=== PATIENT | male | born 1935 | race Caucasian/White ===

== ENCOUNTER 2017-01-25 10:39 | Emergency (ER) | payer MEDICARE, OTHER ==
--- NOTE | 2017-01-25 10:45 | EDM.PDOC ---
ED HISTORY OF PRESENT ILLNESS - General Chief Complaint: Respiratory Problem Stated Complaint: Respirtatory Problem Time Seen by Provider: 01/25/17 10:40 Source of Information: Reports: Patient, [facility] records (Limited), Old records ([facility] EMR. No paper hospital chart available.) History Limitations: Reports: No limitations - History of Present Illness INITIAL COMMENTS - FREE TEXT/NARRATIVE: The patient was transferred to the emergency room via transport vehicle from [facility] in [place] for evaluation of nonspecific progressive dyspnea with symptoms starting at about 22:00 hours yesterday evening. He has had recent extensive pulmonology consultation and evaluation, including bronchoscopy, CT scan of the chest, etc, as below with known history of COPD. The patient denies any chest pain/pressure, heart flutter, dizziness, orthostasis, orthopnea, diaphoresis, paresthesias, recent decreased exercise tolerance, or any other anginal-type symptoms. No recent history of abdominal pain, heartburn, nausea, diarrhea, melena, gross hematochezia, or any food intolerance, including fatty foods, etc.. No recent history of abdominal pain, heartburn, nausea, diarrhea, melena, gross hematochezia, or any food intolerance , including fatty foods, etc. with normal bowel movement yesterday evening. The patient also denies any recent fever, cough, wheezing, etc.. Home Accu-Cheks have been stable, including an Accu-Chek of 152 mg percent this morning by his history Symptom Onset Date: 01/24/17 Symptom Onset Time: 22:00 Timing/Duration: Reports: Constant, Getting worse Severity: moderate Location, General: Reports: other (No pain) Quality: Reports: Same as previous episode Improves with: Reports: Rest Worsens with: Reports: Movement (And activity) Context, General: Reports: Other (As above) Associated Symptoms (General): Reports: shortness of breath. Denies: confusion , chest pain, cough, diaphoresis, fever/chills, headaches, loss of appetite, malaise, nausea/vomiting, syncope, weakness Treatments CARE TRANSPORT NURSE: Reports: Oxygen (4 L per minute by Venturi mask) - Related Data Allergies/ADRs: Allergies Allergy/AdvReac Type Severity Reaction Status Date / Time No Known Allergies Allergy Verified 06/25/14 22:02 Home Meds: Home Meds Ascorbate Calcium [Vitamin C] 500 mg PO DAILY 06/25/14 [History] Aspirin [Ecotrin] 325 mg PO DAILY 06/25/14 [History] Atenolol [Tenormin] 25 mg PO DAILY 06/25/14 [History] Calcium/Magnesium/Zinc [Rfqjmuw-Ubatyiank-Xfja Tablet] 3 tab PO DAILY 06/25/14 [ History] Dorzolamide/Timolol [Cosopt 2%-0.5% Ophth Soln] 1 drop EYEBOTH BID 06/25/14 [ History] Garlic [Odorless Garlic] 1,250 mg PO DAILY 06/25/14 [History] Zwwvotug-Pcihame-Zjsa 149-Hyal [Glucosamine Chondroitin Complx] 3 cap PO DAILY 06/25/14 [History] Insulin Glarg,Human.Rec.Analog [Lantus] 60 unit SUBCUT BEDTIME 06/25/14 [History ] Latanoprost [Xalatan 0.005% Ophth Soln] 1 drop EYEBOTH DAILY 06/25/14 [History] Lisinopril [Zestril] 40 mg PO DAILY 06/25/14 [History] Multivit-Min/FA/Lycopene/Lut [Centrum Silver] 1 tab PO DAILY 06/25/14 [History] Naproxen Sodium [Aleve] 2 tab PO DAILY 06/25/14 [History] atorvaSTATin Calcium [Atorvastatin Calcium] 10 mg PO BEDTIME 06/25/14 [History] Loratadine [Claritin] 10 mg PO BEDTIME #30 tab 06/27/14 [Rx] Acetaminophen 650 mg PO Q4HR PRN 01/25/17 [History] Albuterol/Ipratropium [DuoNeb 3.0-0.5 MG/3 ML] 3 ml IN BID 01/25/17 [History] Albuterol/Ipratropium [DuoNeb 3.0-0.5 MG/3 ML] 3 ml INH Q4HR PRN 01/25/17 [ History] Insulin Aspart [NovoLOG] 4 unit SUBCUT DAILY@1700 01/25/17 [History] Insulin Aspart [NovoLOG] 14 unit SUBCUT DAILY@1200 01/25/17 [History] Naproxen Sodium [Aleve] 220 mg PO DAILY PRN 01/25/17 [History] Past Medical History HEENT History: Reports: Allergic rhinitis, Cataract, Glaucoma, Hard of hearing, Impaired vision, Other (see below). Denies: Macular degeneration Other HEENT History: Patient wears glasses, chronic bilateral presbycusis with patient noncompliant with hearing aid therapy, known previous otosclerosis, diabetic retinopathy with macular edema Cardiovascular History: Reports: CAD, High cholesterol, Hypertension, Other ( see below). Denies: Arrhythmia, VT Other Cardiovascular History: Inferolateral coronary artery disease by EKG Respiratory History: Reports: Bronchitis, recurrent, COPD, Pneumonia, recurrent , Pulmonary fibrosis, Other (see below) Other Respiratory History: History of recurrent right lower lobe bronchus obstruction secondary to inflammatory changes and/or mucous plugging, multiple benign bilateral pulmonary nodules including right upper lobe cystic lesion which is closely followed by pulmonology and serial CT scans as below Gastrointestinal History: Reports: Other (see below) Other Gastrointestinal History: Nonincarcerated umbilical hernia Genitourinary History: Reports: BPH, Chronic renal insuffiency, Diabetic nephropathy Musculoskeletal History: Reports: Arthritis, Back pain, chronic, Neck pain, chronic, Osteoarthritis Neurological History: Reports: Neuropathy, diabetic, Neuropathy, peripheral Endocrine/Metabolic History: Reports: Diabetes, type II, IDDM - Past Surgical History HEENT Surgical History: Reports: Cataract surgery, Oral surgery Respiratory Surgical History: Reports: Lung Biopsies, Other (see below) Other Respiratory Surgeries/Procedures: Apparent negative bronchoscopy including biopsies on 01/16/17 - Past Imaging History Past Imaging History: Reports: CAT scan (Last CT of the chest on 01/16/17 with previous evaluations on 09/08/16, 04/13/15, and 03/19/15), PFT (Last PFTs on 01/16/17 ) Social & Family History - Tobacco Use Smoking Status *Q: Former Smoker Tobacco Use Within Last Twelve Months: Cigarettes Years of Tobacco use: 37 Packs/Tins Daily: 1 (Smoked between the ages 13 and 50) Used Tobacco, but Quit: Yes Month Tobacco Last Used: As above Smoking Cessation Information Provided To Patient: No Second Hand Smoke Exposure: No Second Hand Smoke Education Provided: No - Alcohol Use Alcohol Use History: No Days Per Week of Alcohol Use: 0 - Recreational Drug Use Recreational Drug Use: No - Living Situation & Occupation Living situation: Reports: extended care facility (Basic side at [facility] in [place]) ED ROS GENERAL - Review of Systems Review Of Systems: See Below Constitutional: Reports: no symptoms. Denies: fever, chills, malaise, weakness , fatigue, night sweats, diaphoresis, decreased appetite, weight loss, weight gain HEENT: Reports: Glasses, Hearing loss (Noncompliant with hearing aides). Denies : Dental pain, Ear discharge, Ear pain, Rhinitis, Sinus problem, Throat pain, Throat swelling, Vertigo, Vision change Respiratory: Reports: Shortness of Breath, Cough. Denies: Wheezing, Pleuritic Chest Pain, Sputum, Hemoptysis Cardiovascular: Reports: Dyspnea on exertion. Denies: Chest pain, Blood pressure problem, Claudication, Edema, Lightheadedness, Orthopnea, Palpitations , PND, Syncope Endocrine: Reports: no symptoms. Denies: fatigue, high glucose, low glucose, polydypsia, polyuria GI/Abdominal: Reports: No symptoms. Denies: Abdominal pain, Anorexia, Black stool, Bloody stool, Constipation, Diarrhea, Decreased appetite, Difficulty swallowing, Distension, Flatus, Hematemesis, Hematochezia, Melena, Nausea, Stool incontinence, Vomiting : Reports: no symptoms. Denies: dysuria, flank pain, frequency, hematuria, incontinence, pain, urgency, urinary retention Musculoskeletal: Reports: no symptoms. Denies: neck pain, shoulder pain, arm pain, leg pain Skin: Reports: no symptoms. Denies: diaphoresis, bruising, wound Neurological: Reports: Difficulty Walking (Stable uses walker). Denies: Confusion, Dizziness, Headache, Numbness, Paresthesia, Pre-Existing Deficit, Seizure, Syncope, Tingling, Weakness Psychiatric: Reports: No symptoms. Denies: Agitation, Anxiety, Confusion, Depression, Hallucinations Hematologic/Lymphatic: Reports: no symptoms. Denies: anemia Immunologic: Reports: no symptoms ED EXAM, GENERAL - Physical Exam Exam: See Below Exam Limited By: No limitations General Appearance: alert, WD/WN, no apparent distress Eye Exam: bilateral eye: EOMI, normal inspection (No nystagmus), PERRL Ears: normal external exam, normal canal, normal TMs, hearing loss (Stable by history moderate bilateral presbycusis with no hearing aides) Nose: normal inspection, normal mucosa, no blood Throat/Mouth: Normal inspection, Normal lips, Normal gums, Normal oropharynx, Normal voice, No airway compromise. No: Normal teeth (Complete absent dentition with no dentures present), Dysphagia, Perioral cyanosis Head: atraumatic, normocephalic. No: facial swelling, facial tenderness, sinus tenderness Neck: normal inspection, supple, non-tender, full range of motion, carotid bruit (Mild bilateral carotid bruits). No: lymphadenopathy (L), lymphadenopathy (R), thyromegaly Respiratory/Chest: no respiratory distress, no accessory muscle use, chest non- tender, decreased breath sounds (Right base), rales (Bilateral basilar rales). No: respiratory distress, rhonchi, pleural rub, retractions Cardiovascular: normal peripheral pulses, regular rate, rhythm, no edema, no gallop, no JVD, no murmur, no rub, other (Quiet heart sounds). No: gallop/S3, gallop/S4, friction rub Peripheral Pulses: 2+: radial (L), radial (R), dorsalis pedis (L), dorsalis pedis (R) GI/Abdominal: normal bowel sounds, soft, non tender, no organomegaly, no distention, no abnormal bruit, no mass, hernia (4 centimeter in diameter nonincarcerated umbilical hernia). No: guarding (Male) Exam: Deferred Rectal (Males) Exam: Deferred Back Exam: normal inspection, full range of motion. No: CVA tenderness (L), CVA tenderness (R), muscle spasm Extremities: normal inspection, normal range of motion, non-tender, no pedal edema, normal capillary refill. No: Leny's Sign Neurological: alert, oriented, CN II-XII intact, normal cognition, normal reflexes (Negative Babinski's), no motor/sensory deficits. No: confused Psychiatric: normal affect, normal mood Skin Exam: Warm, Dry, Intact, Normal color, No rash. No: Diaphoretic, Wound/ incision Lymphatic: no adenopathy EKG INTERPRETATION EKG Date: 01/25/17 Time: 11:00 Rhythm: NSR Rate (beats/min): 69 [place]: normal (Left cardiac axis) P-wave: present (Mild Diffuse biphasic P waves with some pulmonary hypertension by EKG with resolution of previous poor R-wave progression in the anterior leads ) QRS: normal (QRS interval 0.08 seconds representing repolarization changes) ST-T: normal (Resolution of previous T-wave inversion in leads 2, 3, aVF, and V4 through V6) QT: normal OR/PQ Interval: 0.18 seconds Comparison: change from previous EKG (As above since last EKG on 06/25/14) EKG Interpretation Comments: 1. No acute ischemic changes 2. History of probable inferolateral cardiac ischemia Course - Vital Signs Last Recorded V/S: Last Vital Signs Temp 37.2 C 01/25/17 10:40 Pulse 69 01/25/17 12:20 Resp 25 H 01/25/17 12:20 BP 82/52 L 01/25/17 12:20 Pulse Ox 94 L 01/25/17 12:20 Vital Signs - 24 hr 01/25/17 01/25/17 01/25/17 10:40 11:00 11:08 Temperature [ 37.2 C Oral] Pulse, 75 70 69 Peripheral [ Pulse Oximetry] Respiratory 20 20 19 Rate Blood Pressure 122/58 L 88/54 L 91/51 L [Right Upper Arm] O2 Sat by Pulse 95 95 94 L Oximetry 01/25/17 01/25/17 01/25/17 11:40 12:00 12:20 Temperature [ Oral] Pulse, 66 70 69 Peripheral [ Pulse Oximetry] Respiratory 26 H 23 H 25 H Rate Blood Pressure 88/54 L 82/52 L [Right Upper Arm] O2 Sat by Pulse 94 L 93 L 94 L Oximetry Note blood pressures taken by auscultation/manually - Orders/Labs/Meds Orders: Active Orders 24 hr Category Date Time Status Cardiac Monitoring [RC] . DIRECTED Care 01/25/17 10:50 Active EKG Documentation Completion [RC] ASDIRECTED Care 01/25/17 10:50 Active Oxygen Therapy, ED [RC] CONTINUOUS Care 01/25/17 10:50 Active Peripheral IV Care [RC] . DIRECTED Care 01/25/17 10:50 Active Pulse Oximetry [RC] CONTINUOUS Care 01/25/17 10:50 Active Up With Assistance [RC] PFP Care 01/25/17 10:50 Active Vital Signs [RC] PFP Care 01/25/17 10:50 Active Nothing per Oral Now Diet [DIET] Diet 01/25/17 Breakfast Active Chest 1V Frontal [CR] Stat Exams 01/25/17 10:50 Taken Sodium Chloride 0.9% [Saline Flush] Med 01/25/17 10:49 Active 10 ml FLUSH ASDIRECTED PRN Obtain Past Medical Record [OM.PC] Urgent Oth 01/25/17 10:50 Active Peripheral IV Insertion Adult [OM.PC] Stat Oth 01/25/17 10:50 Ordered Resuscitation Status Stat Resus Stat 01/25/17 10:49 Ordered Medication Orders Sodium Chloride (Saline Flush) 10 ml FLUSH ASDIRECTED PRN PRN Reason: Keep Vein Open Last Admin: 01/25/17 11:02 Dose: 10 ml Labs: Laboratory Tests 01/25/17 01/25/17 01/25/17 Range/Units 10:50 10:50 10:50 WBC 10.1 (4.0-10.2) K/uL RBC 4.68 (4.33-5.41) M/uL Hgb 14.8 (13.1-16.8) g/dL Hct 43.5 (39.0-49.0) % MCV 92.9 (84.0-98.0) fL MCH 31.6 (28.2-33.3) pg MCHC 34.0 (31.7-36.0) g/dL RDW 14.1 (11.2-14.1) % Plt Count 162 (150-350) K/uL Neut % (Auto) 91.0 H (45.0-80.0) % Lymph % (Auto) 5.1 L (10.0-50.0) % Jackson % (Auto) 3.6 (2.0-14.0) % Eos % (Auto) 0.2 (0.0-5.0) % Baso % (Auto) 0.1 (0.0-2.0) % Neut # (Auto) 9.21 H (1.40-7.00) K/uL Lymph # (Auto) 0.52 (0.50-3.50) K/uL Jackson # (Auto) 0.36 (0.00-1.00) K/uL Eos # (Auto) 0.02 (0.00-0.50) K/uL Baso # (Auto) 0.01 (0.00-0.20) K/uL PT 11.7 (9.8-11.7) SEC INR 1.1 APTT 31.5 H (23.5-30.0) SEC D-Dimer, Quantitative 1900 H (0-400) ng/mL Sodium (136-145) mmol/L Potassium (3.5-5.1) mmol/L Chloride (98-107) mmol/L Carbon Dioxide (21.0-32.0) mmol/L BUN (7-18) mg/dL Creatinine (0.51-1.17) mg/dL Est Cr Clr Drug Dosing Estimated GFR (MDRD) mL/min Glucose (74-106) mg/dL Lactic Acid (0.4-2.0) mmol/L Uric Acid (2.6-7.2) mg/dL Calcium (8.5-10.1) mg/dL Magnesium (1.8-2.4) mg/dL Total Bilirubin (0.2-1.0) mg/dL AST (15-37) U/L ALT (12-78) U/L Alkaline Phosphatase (46-116) IU/L Creatine Kinase (26-308) U/L Creatine Kinase Index (0.0-2.5) % CK-MB (CK-2) (0.00-3.60) ng/mL Troponin I (0.000-0.056) ng/mL Uxj-X-Xojqueewaqd Pept (0-125) pg/mL Total Protein (6.4-8.2) g/dL Albumin (3.4-5.0) g/dL TSH, Ultra Sensitive (0.358-3.740) mIU/mL H. pylori IgG Antibody (NEGATIVE) 01/25/17 01/25/17 01/25/17 Range/Units 10:50 10:50 10:50 WBC (4.0-10.2) K/uL RBC (4.33-5.41) M/uL Hgb (13.1-16.8) g/dL Hct (39.0-49.0) % MCV (84.0-98.0) fL MCH (28.2-33.3) pg MCHC (31.7-36.0) g/dL RDW (11.2-14.1) % Plt Count (150-350) K/uL Neut % (Auto) (45.0-80.0) % Lymph % (Auto) (10.0-50.0) % Jackson % (Auto) (2.0-14.0) % Eos % (Auto) (0.0-5.0) % Baso % (Auto) (0.0-2.0) % Neut # (Auto) (1.40-7.00) K/uL Lymph # (Auto) (0.50-3.50) K/uL Jackson # (Auto) (0.00-1.00) K/uL Eos # (Auto) (0.00-0.50) K/uL Baso # (Auto) (0.00-0.20) K/uL PT (9.8-11.7) SEC INR APTT (23.5-30.0) SEC D-Dimer, Quantitative (0-400) ng/mL Sodium 138 (136-145) mmol/L Potassium 4.5 (3.5-5.1) mmol/L Chloride 103 (98-107) mmol/L Carbon Dioxide 21.6 (21.0-32.0) mmol/L BUN 45 H (7-18) mg/dL Creatinine 1.67 H (0.51-1.17) mg/dL Est Cr Clr Drug Dosing TNP Estimated GFR (MDRD) 39 mL/min Glucose 174 H (74-106) mg/dL Lactic Acid 2.5 H (0.4-2.0) mmol/L Uric Acid 6.9 (2.6-7.2) mg/dL Calcium 8.4 L (8.5-10.1) mg/dL Magnesium 2.0 (1.8-2.4) mg/dL Total Bilirubin 1.1 H (0.2-1.0) mg/dL AST 25 (15-37) U/L ALT 34 (12-78) U/L Alkaline Phosphatase 76 (46-116) IU/L Creatine Kinase 413 H (26-308) U/L Creatine Kinase Index 0.6 (0.0-2.5) % CK-MB (CK-2) 2.50 (0.00-3.60) ng/mL Troponin I 0.239 H* (0.000-0.056) ng/mL Udq-T-Mmtbdvndfsx Pept 8110 H (0-125) pg/mL Total Protein 6.8 (6.4-8.2) g/dL Albumin 2.9 L (3.4-5.0) g/dL TSH, Ultra Sensitive 0.383 (0.358-3.740) mIU/mL H. pylori IgG Antibody Negative (NEGATIVE) Meds: Medications Generic Name Dose Route Start Last Admin Trade Name Freq PRN Reason Stop Dose Admin Sodium Chloride 10 ml 01/25/17 10:49 01/25/17 11:02 Saline Flush FLUSH 10 ml ASDIRECTED PRN Administration Keep Vein Open Discontinued Medications Generic Name Dose Route Start Last Admin Trade Name Freq PRN Reason Stop Dose Admin Aspirin 324 mg 01/25/17 11:48 01/25/17 11:55 Aspirin CHEW 01/25/17 11:49 324 mg ONETIME ONE Administration Clopidogrel Bisulfate 300 mg 01/25/17 11:48 01/25/17 11:56 Plavix PO 01/25/17 11:49 300 mg ONETIME ONE Administration Famotidine 40 mg 01/25/17 10:49 01/25/17 10:59 Pepcid IVPUSH 01/25/17 10:50 40 mg ONETIME ONE Administration - Radiology Interpretation Free Text/Narrative:: Info Specialist showed normal sinus rhythm averaging in the 70s with no ectopy or arrhythmia Chest x-ray, portable, showed evidence of moderate to severe COPD and pulmonary fibrotic changes with evidence of severe right lower lobe atelectasis consistent with previous chronic right bronchial obstruction in the past as above. Concomitant pulmonary infiltrates may also be present however difficult to assess. Moderate cardiomegaly and prominence of the proximal aortic arch with probable moderate centralized CHF and concomitant pulmonary hypertension. No evidence of pneumothorax Departure - Departure Time of Disposition: 12:25 Disposition: DC/Tfer to Acute Hospital 02 Condition: serious Clinical Impression: Hyperlipidemia, CHF (congestive heart failure), Hypotension, Hypertension, COPD (chronic obstructive pulmonary disease), D-dimer, elevated, Renal insufficiency, IDDM (insulin dependent diabetes mellitus) Referrals: Sheets-Kyung Prather MD [Primary Care Provider] - Forms: ED Department Discharge, Interfacility Transfer EMTALA - Problem List & Annotations (1) CHF (congestive heart failure) SNOMED Code(s): 05214318 Code(s): I50.9 - HEART FAILURE, UNSPECIFIED Status: Acute Priority: High Current Visit: Yes Onset Date: 01/25/17 Annotation/Comment:: Chest pain protocol was not initiated upon the patient's arrival to the emergency room secondary to his absent chest pain or other anginal-type symptoms. Note that ASA and Plavix were given when blood work results were received. Secondary to patient's hypotension IV beta shmuel therapy and IV Lasix were not given. Telephone consultation at 11:[address] Lau, hospitalist at [facility] in [place], who agrees to accept the patient for direct admission into their ICU, with no further treatment recommendations given. Despite moderate hypotension during emergency room care his overall systolic blood pressure did remain relatively stable in the 80s with consideration of IV dobutamine, etc. therapy in the accepting facility depending on his clinical course. Note that the patient apparently had a pressure of 135/66 at the assisted prior to transfer to this facility. Further cardiology consultation, echocardiogram, etc. depending on his clinical course. Note previous history of inferolateral cardiac ischemia by EKG with no acute EKG findings at this time Qualifiers: Congestive heart failure type: unspecified congestive heart failure type Congestive heart failure chronicity: acute on chronic Qualified Code(s): I50.9 - Heart failure, unspecified (2) Hypotension SNOMED Code(s): 47754811 Code(s): I95.9 - HYPOTENSION, UNSPECIFIED Status: Acute Current Visit: Yes Qualifiers: Hypotension type: other hypotension type Qualified Code(s): I95.89 - Other hypotension (3) Lactic acid increased SNOMED Code(s): 23535213 Code(s): E87.2 - ACIDOSIS Status: Acute Priority: High Current Visit: Yes Onset Date: 01/25/17 Annotation/Comment:: Mild lactic acid elevation with no clinical evidence of significant acidosis, sepsis, etc. Continue to observe closely with consideration of repeating lactic acid level shortly after admission in [place] (4) COPD (chronic obstructive pulmonary disease) SNOMED Code(s): 35388783 Code(s): J44.9 - CHRONIC OBSTRUCTIVE PULMONARY DISEASE, UNSPECIFIED Status : Chronic Priority: Medium Current Visit: Yes Annotation/Comment:: Stable by history with no recent fever or true bronchitic-type symptoms. Note recent pulmonology consultation including PFTs, CT scan of the chest, and bronchoscopy with possible lung biopsy on 01/16/17 by patient history as above. Note additional history of bilateral pulmonary nodules, which are closely followed by pulmonology, including serial CT scans as above Qualifiers: COPD type: emphysema Emphysema type: panlobular Qualified Code(s): J43.1 - Panlobular emphysema (5) IDDM (insulin dependent diabetes mellitus) SNOMED Code(s): 93841013 Code(s): E11.9 - TYPE 2 DIABETES MELLITUS WITHOUT COMPLICATIONS; Z79.4 - GARMENT LOOPER (CURRENT) USE OF INSULIN Status: Acute Priority: Medium Current Visit: Yes Annotation/Comment:: Blood sugars have been stable at home by his history with current problems of diabetic neuropathy, nephropathy, and retinopathy. Continue to observe closely by his regular providers. Consider glycosylated hemoglobin, urine for micro-albumen, etc. (6) Hyperlipidemia SNOMED Code(s): 30481037 Code(s): E78.5 - HYPERLIPIDEMIA, UNSPECIFIED Status: Acute Priority: Low Current Visit: Yes Annotation/Comment:: Note current Lipitor therapy. Consider lipid panel, etc. secondary to risk factors and current symptoms with known history of probable inferolateral cardiac ischemia by previous EKG as above. (7) Hypertension SNOMED Code(s): 42783024 Code(s): I10 - ESSENTIAL (PRIMARY) HYPERTENSION Status: Chronic Priority : Medium Current Visit: Yes Annotation/Comment:: History of hypertension with current hypotension as above. Patient did receive his morning medications Qualifiers: Hypertension type: essential hypertension Qualified Code(s): I10 - Essential (primary) hypertension (8) D-dimer, elevated SNOMED Code(s): 747259817 Code(s): R79.89 - OTHER SPECIFIED ABNORMAL FINDINGS OF BLOOD CHEMISTRY Status: Acute Priority: Medium Current Visit: Yes Onset Date: 01/25/17 Annotation/Comment:: Consider CTA of the chest with PE protocol and venous Doppler studies by accepting physicians (9) Renal insufficiency SNOMED Code(s): 220515561 Code(s): N28.9 - DISORDER OF KIDNEY AND URETER, UNSPECIFIED Status: Chronic Priority: Medium Current Visit: Yes Annotation/Comment:: Known history of diabetic nephropathy and renal insufficiency. Continue to observe closely especially IV diuresis is required (10) Osteoarthritis SNOMED Code(s): 581630812 Code(s): M19.90 - UNSPECIFIED OSTEOARTHRITIS, UNSPECIFIED SITE Status: Chronic Priority: Medium Current Visit: Yes Annotation/Comment:: Stable by history Qualifiers: Osteoarthritis location: multiple joints Osteoarthritis type: primary Qualified Code(s): M15.0 - Primary generalized (osteo)arthritis - Problem List Review Problem List Initiated/Reviewed/Updated: Yes - My Orders Last 24 Hours: My Active Orders 01/25/17 10:49 Sodium Chloride 0.9% [Saline Flush] 10 ml FLUSH ASDIRECTED PRN Resuscitation Status Stat 01/25/17 10:50 Cardiac Monitoring [RC] . DIRECTED EKG Documentation Completion [RC] ASDIRECTED Oxygen Therapy, ED [RC] CONTINUOUS Peripheral IV Care [RC] . DIRECTED Pulse Oximetry [RC] CONTINUOUS Up With Assistance [RC] PFP Vital Signs [RC] PFP Chest 1V Frontal [CR] Stat Obtain Past Medical Record [OM.PC] Urgent Peripheral IV Insertion Adult [OM.PC] Stat 01/25/17 Breakfast Nothing per Oral Now Diet [DIET] - Assessment/Plan Last 24 Hours: My Active Orders 01/25/17 10:49 Sodium Chloride 0.9% [Saline Flush] 10 ml FLUSH ASDIRECTED PRN Resuscitation Status Stat 01/25/17 10:50 Cardiac Monitoring [RC] . DIRECTED EKG Documentation Completion [RC] ASDIRECTED Oxygen Therapy, ED [RC] CONTINUOUS Peripheral IV Care [RC] . DIRECTED Pulse Oximetry [RC] CONTINUOUS Up With Assistance [RC] PFP Vital Signs [RC] PFP Chest 1V Frontal [CR] Stat Obtain Past Medical Record [OM.PC] Urgent Peripheral IV Insertion Adult [OM.PC] Stat 01/25/17 Breakfast Nothing per Oral Now Diet [DIET] Assessment:: As above Plan: As above. Extensive precautions were given to the patient, who is in agreement with the treatment plan. Ambulance transfer with model maker plaster accompaniment
[2017-01-25] MEDS ORDERED: Sodium Chloride 0.9% 10 ML Syringe FLUSH PRN (10:49)
[2017-01-25] MEDS ORDERED: Famotidine 20 MG/2 ML SDV IVPUSH ONE (10:49)
[2017-01-25 11:33] LABS: CHLORIDE,CL 103 mmol/L (98-107); SODIUM,NA 138 mmol/L (136-145)
[2017-01-25] MEDS ORDERED: Aspirin 81 MG Tab.Chew CHEW ONE (11:48)
[2017-01-25] MEDS ORDERED: Clopidogrel 75 MG Tab PO ONE (11:48)
[2017-01-25 15:25] VITALS: BP 82/52
== END 2017-01-25 12:25 ==
LOC: LL.ED 10:39
DX: I11.0 Hypertensive heart disease with heart failure (principal); I50.9 Heart failure, unspecified; I95.9 Hypotension, unspecified; J44.9 Chronic obstructive pulmonary disease, unspecified; E11.40 Type 2 diabetes mellitus with diabetic neuropathy, unspecified; N28.9 Disorder of kidney and ureter, unspecified; R79.89 Other specified abnormal findings of blood chemistry; I25.10 Atherosclerotic heart disease of native coronary artery without angina pectoris; E78.00 Pure hypercholesterolemia, unspecified; E11.21 Type 2 diabetes mellitus with diabetic nephropathy; Z87.891 Personal history of nicotine dependence; Z79.899 Other long term (current) drug therapy; Z79.82 Long term (current) use of aspirin
CPT/HCPCS: 36415; 71010; 80053; 82550; 82553; 83605; 83735; 83880; 84443; 84484; 84550; 85025; 85379; 85610; 85730; 86318; 93005; 96374; 99285; 99291; 99292; A9270; J7050; S0028